=== PATIENT | female | born 1935 | race Caucasian/White ===

== ENCOUNTER → 2020-07-27 | Outpatient (CLI) | payer MEDICARE, OTHER ==
[~2020-07-27] MED LIST: ARICEPT10 MG PO; CENTRUM SILVER1 EAC6 PO; COLACE100 MG PO; DICLOFENAC SOD100 G1 TOP; FUROSEMIDE 20 M20 M1 PO; IRON325 PO; K-DUR 20 MEQ T20 MEQ PO; LOVASTATIN40 MG PO; MEMANTINE HCL10 MG PO; METOPROLOL SUCC50 MG PO; NEURONTIN 300M300 M2 PO; NORCO 10-325 T1 EACH PO; OCUVITE LUTEIN1 EAC2 PO; OMEPRAZOLE40 MG PO; ONDANSETRON HCL4 M3 PO; PERCOCET 10-321 EAC1 PO; REQUIP 1 MG TABL1 M1 PO; TRIAMTERENE/HCT1 CA1 PO; VITAMIN B-121000 MC2 SUBLING; VITAMIN C1000 MG PO; VITAMIN D325 MC3 PO; VITAMIN E1000 UNIT PO; XARELTO10 MG PO
[2020-07-27 14:46] LABS: HEMATOCRIT 38.3 % (37.0-47.0); HEMOGLOBIN 12.8 gm/dL (12.0-15.0); MCH 31.6 pg (26.0-34.0); MCHC 33.4 g/dL (28.0-37.0); MCV 94.6 fL (80.0-100.0); MPV 8.3 fl. (7.2-11.1); RBC 4.05 mil/uL (4.20-5.00); RDW-CV 13.9 % (10.5-14.5); WBC 8.5 thou/uL (4.0-11.0)
[2020-07-27 15:02] LABS: PROTIME 9.9 Seconds (9.20-11.50)
[2020-07-27 15:04] LABS: URINE BILIRUBIN NEGATIVE (Negative); URINE BLOOD 2+ (Negative); URINE CLARITY SL CLOUDY; URINE COLOR YELLOW; URINE GLUCOSE-RANDOM NEGATIVE (Negative); URINE KETONES NEGATIVE (Negative); URINE NITRITE-REFLEX NEGATIVE (Negative); URINE PROTEIN NEGATIVE (Negative); URINE SPECIFIC GRAVITY 1.015 (1.005-1.030); URINE UROBILINOGEN 0.2 E.U./dl (0.2-1.0)
[2020-07-27 15:08] LABS: URINE LEUKOCYTES-REFLEX 3+ (Negative)
[2020-07-27 15:09] LABS: ALBUMIN 3.4 g/dL (3.4-5.0); CREATININE 1.7 mg/dL (0.6-1.3); INR < 0.9; POTASSIUM 4.8 mmol/L (3.5-5.1); TOTAL BILIRUBIN 0.4 mg/dL (<0.1-1.0); TOTAL PROTEIN 7.4 g/dL (6.4-8.2)
[2020-07-27 15:11] LABS: BACTERIA-REFLEX >30 Many /HPF (None Seen); SQUAMOUS 4-10 Moderate /LPF (0-3)
[2020-07-27 15:12] LABS: CASTS None Seen /LPF (None Seen); CRYSTALS None Seen /LPF (None Seen); URINE WBC-REFLEX >25 Many /HPF (0-5)
[2020-07-27 15:13] LABS: URINE RBC 0-2 Rare /HPF (0-2)
== END ==
LOC: M.LAB 06:27
PROVIDERS: ATTEND Orthopaedic Surgery
DX: Z01.812 Encounter for preprocedural laboratory examination (principal); Z20.828 Contact with and (suspected) exposure to other viral communicable diseases; M19.011 Primary osteoarthritis, right shoulder; Z79.899 Other long term (current) drug therapy; R06.02 Shortness of breath; Z68.30 Body mass index [BMI] 30.0-30.9, adult

== ENCOUNTER 2020-08-03 06:27 | Inpatient (IN) | payer MEDICARE, OTHER ==
[~2020-08-03] VITALS: Ht 160 cm; Wt 77.6 kg
[~2020-08-03 06:27] MED LIST changes: -PERCOCET 10-321 EAC1 PO; -XARELTO10 MG PO
[2020-08-03 09:45] VITALS: BP 121/69
[2020-08-03 14:43] VITALS: BP 121/55
--- NOTE | 2020-08-03 14:54 | NUR ---
PATIENT ARRIVED ALERT AND ORIENTED X4. ORIENTED TO ROOM AND BED CONTROLS. DENIES ANY PAIN AT THIS TIME. SLING IN PLACE OVER RIGHT ARM. RIGHT FINGERS WARM AND PINK WITH GOOD CAPILLARY REFILL. STILL HAS SOME NUMBNESS RIGHT HAND FROM BLOCK. NO C/O N/V. CALL LIGHT WITHIN REACH. FALL PRECAUTIONS IN PLACE. BED ALARM AND CHAIR ALARM USED.
[2020-08-03 17:24] VITALS: BP 117/51
--- NOTE | 2020-08-03 18:38 | NUR ---
ALERT AND ORIENTED X4. RESTING QUIETLY IN BED AT THIS TIME. BLOCK WEARING OFF PATIENT AND PAIENT GIVEN PO PAIN MEDICATION. NO C/O N/V. SLING IN PLACE ON RIGHT ARM. RIGHT FINGERS WARM AND PINK. USES CALL LIGHT FOR ASSIST. FALL PRECAUTIONS IN PLACE. BED ALARM ON. POLAR CARE ON RIGHT SHOULDER. WILL CONTINUE TO MONITOR.
[2020-08-03 20:10] VITALS: BP 117/59
[2020-08-03 23:27] VITALS: BP 105/52
[2020-08-04 03:06] VITALS: BP 92/53
--- NOTE | 2020-08-04 04:57 | NUR ---
PATIENT HAS REMAINED ALERT AND ORIENTED X 4 THROUGHOUT THE SHIFT AND RESTING QUIETLY ON HOURLY ROUNDS. DRESSING RIGHT SHOULDER CLEAN AND DRY WITH POLARCARE IN PLACE WITH IMMOBILIZER. BLOCK WEARING OFF DURING THE SHIFT WITH INCREASED PAIN REQUIRING ONE DOSE IV MORPHINE IN ADDITION TO PRN OXY IR. SEE E-MAR. UP TO BSC WITH MIN ASSIST OF ONE. ADEQUATE URINE OUTPUT. ORAL INTAKE ALSO ADEQUATE WITHOUT NAUSEA. VITAL SIGNS STABLE ON ROOM AIR. FALL PRECAUTIONS IN PLACE. CONTINUE TO MONITOR.
[2020-08-04 07:45] VITALS: BP 91/66
--- NOTE | 2020-08-04 09:33 | NUR ---
cm completed the initial assessment to discuss home situation and d/c plan. pt a&ox4. pt lives home, pt stated her dtr and nicholas moved in w/her. dtr is retired and is home 12/02, essentially. pt has ramp in the back from sunroom to deck. pt has 3 steps to entryway, otherwise lives on main level of the home. pt has a son and dil that lives next store, so pt has adequate support from family. pt has a has 2 walkers, ("up right") 3 cnaes commode seat riser shower bench. pt rates her px ten plus, plus, plus" and said it is worst than child labor. pt complained she was only able to sleep 15 min last night d/t px. cm notified pt's hospitalist and rn of complaint.
[2020-08-04 12:34] VITALS: BP 123/62
[2020-08-04 16:34] VITALS: BP 98/56
--- NOTE | 2020-08-04 17:30 | NUR ---
A&O X 4, PWD. C/O RIGHT SHOULDER PAIN. PAIN NOT UNDER CONTROL. PT'S DAUGHTER REQUEST THAT WE USE HEAT ON RIGHT SHOULDER. INFORMED HER THAT SHE REALLY NEEDS TO USE POLAR PACK TO DECREASE THE INFLAMMATION. DAUGHTER STATED ICE HAS NOT REALLY HELPED HER AND WANTS TO TRY HEAT. WARM BLANKET PLACED ON RIGHT SHOULDER. PT FELT IS HELPPED BUT PT STILL MOANING WITH PAIN. ANKLES SWOLLEN 2+ RIGHT ANKLE AND 1+ LEFT ANKLE. LUNGS CLEAR, HEART TONES REG. +BS X 4 QUADS. SEE MAR FOR PAIN MEDICATION. WILL CONTINUE TO MONITOR.
[2020-08-04 20:00] VITALS: BP 129/67
[2020-08-05] VITALS (7 sets, daily range): BP systolic 101–120; BP diastolic 50–67
--- NOTE | 2020-08-05 07:32 | NUR ---
Drowsy from start of shift. She does awaken easily and vitals have been stable. She has been 92-93% on roomair. [place] mepilex dressing to rt shoulder is dry and intact with polarcare and immobilizer in place. She had oxy IR 15 mg at bedtime and rated her pain at 3. She denied need for pain meds after that. This am she was fine and I took her polarcare to be filled with ice and she tried to get alone and was trying to take off her immobilizer. I did help her to the bedside commode and fixed her immobilizer and I did give her a hydrocodone at that time and she did fall back to sleep.
[2020-08-05] MEDS ORDERED: XARELTO10 MG PO (08:16)
[2020-08-05] MEDS ORDERED: PERCOCET 10-321 EAC1 PO (08:16)
--- NOTE | 2020-08-05 15:01 | NUR ---
WOUND NURSE: PATIENT SEEN TO ADDRESS A SKIN TEAR ON THE RIGHT ELBOW. PER THE DAUGHTER THIS OCCURRED AROUND THE TIME OF SURGERY BY ON SUNDAY. DRESSING IS SATURATED AND LEAKING SEROUS FLUID 2ND TO LARGE AMOUNT OF NONPITTING EDEMA. THE ARM IS SIGNIFICANTLY PAINFUL. GENTLY REMOVED DRESSING AND IRRIGATED WITH SALINE PATTED DRY WITH GAUZE. APPLIED SKIN PRP TO INTACT PERIWOUND TISSUE. APPLIED OIL EMULSION GAUZE UNDER FOLDED 4X4'S THEN SECURED WITH TRANSPARENT DRESSING. THIS WAS TOLERATED FAIR BY THE PATIENT. PATIENT'S DAUGHTER INSTRUCTED ON CARE POST DC FROM ACUTE CARE. ALSO PATIENT REFUSED PICTURES DUE TO SIGNIFICANCE OF POST OP PAIN. PATIENT WILL BE RETURNING HOME WITH HOME HEALTH SERVICES.
--- NOTE | 2020-08-05 17:17 | NUR ---
PATIENT DECIDED SHE FELT GOOD ENOUGH AND THAT HER PAIN IS CONTROLLED ENOUGH TO GO HOME THIS EVENING. PATIENT/DAUGHTER GIVEN DISCHARGE INSTRUCTIONS AND MEDICATIONS REVIEWED. PATIENT/DAUGHTER DENY PAIN/QUESTIONS/CONCERNS PRIOR TO DISCHARGE. WOUND CARE NURSE SAW PATIENT'S SKIN TEAR THAT OCCURRED DURING SURGERY AND WROTE WOUND CARE ORDERS WHICH WERE THEN FAXED TO HOME HEALTH (PATIENT DECLINED PHOTO BEING TAKEN SHE WAS IN PAIN DURING DRESSING CHANGE). PATIENT LEFT UNIT VIA W/C WITH PERSONAL BELONGINGS ACCOMPANIED BY NURSING STAFF AT APPROX. 1706 AND MET DAUGHTER AT ER ENTRANCE TO GO HOME.
--- NOTE | 2020-08-06 11:14 | OP ---
[facility] [address] [place] [address] OPERATIVE REPORT Name: MERNA AJ Room: [address] M.R.#: [id number] Admission: 08/03/20 Attend Phys: Hector Bateman Discharge: 08/05/20 Date of : 31 Report #: [id number] THIS REPORT FOR: cc: Arina Goode MD, Pamela MD ~ Greiner, Robert F. 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 PROCEDURE: ____ reverse total shoulder arthroplasty. SURGEON: Nick Fischer II, DO TRACK LAMINATING MACHINE TENDER: PRASANNA Davies ANESTHESIA: Per operative record. ESTIMATED BLOOD LOSS: Minimal. ANTIBIOTICS: Per operative record. DRAINS: None. COMPLICATIONS: None. CONDITION OF THE PATIENT: Stable to recovery room. DESCRIPTION OF PROCEDURE: The patient was taken to the operative suite and placed supine on the operative table, given appropriate anesthesia. The patient's affected shoulder was sterilely prepped and draped in a modified beach chair position and all bony prominences well padded. Surgery began by an anterior incision over the deltopectoral region. This was carried down to the subcutaneous tissues. Careful dissection was performed around the deltoid and retracted laterally with the cephalic vein. The subscapularis was then reflected off the anterior aspect of the humerus and the biceps was stitched into the pectoralis tendon attachment and snipped up into the proximal attachment. The head was then exposed out through the anterior aspect of the shoulder. The intramedullary guides were then reamed down to appropriate size. This was then left in place with the cutting alignment guide applied, set in appropriate rotation and appropriate cut was made. [place] [address] OPERATIVE REPORT Name: MERNA AJ Room: [address] IN [facility].#: [id number] Admission: 08/03/20 Attend Phys: Hector Bateman Discharge: 08/05/20 Date of : 31 Report #: [id number] and the broach was placed. A small hubcap was then applied over the top to protect the bone and this was then retracted posteriorly. Attention was then turned to the glenoid. Excess glenoid labrum was removed. 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 Guidewire was then placed in the center and inferior aspect of the glenoid utilizing the alignment guide. This guide was then left in place and reaming was performed over this area to punctate bleeding. The glenoid baseplate and central screw was then applied and cinched into place. Four locking screws were then applied through the glenoid baseplate. The central glenoid was then trialed and showed an excellent fit and stability and the final was then selected and malleted into place. Attention was then turned back to the humerus. It was trialed up to +8 plastic, which showed an excellent fit and fill and excellent stability of the shoulder with all range of motion, with full range of motion. This final was then selected and malleted onto the back table into a monoblock configuration and this was then malleted into position within the humerus, once again reduced in near anatomic fashion, showing excellent range of motion and stability of the shoulder without evidence of dislocation. Final irrigation was then performed. The deltopectoral approach was reapproximated utilizing 1 Vicryl in running fashion. Skin was closed with 2-0 Vicryl and running Monocryl stitch. Dermabond and a sterile dressing was applied. There was a small skin tear noted to the radial aspect of the forearm due to her thin skin in this region, which was covered with an Op-Site to protect it. The patient was placed in a sling and transported to recovery room in stable condition. Counts were correct throughout the procedure. <ELECTRONICALLY SIGNED> By: Nick Fischer II, DO 08/06/20 [id number] Fischer II, DO /nt
== END 2020-08-05 17:06 | disposition home health service (06) | DRG 483 ==
LOC: M.ORTHSURG → M.TBA 08:18 → M.3W 08:18 → M.ORTHSURG 10:16 → M.3W 14:27 → M.ORTHSURG 15:10 → M.3W 08-05 17:06
PROVIDERS: ADMIT Internal Medicine; ATTEND Internal Medicine
PROC: 0RRJ00Z Replacement of Right Shoulder Joint with Reverse Ball and Socket Synthetic Substitute, Open Approach (ICD-10-PCS; principal; 2020-08-03)
DX: M19.011 Primary osteoarthritis, right shoulder (principal); M75.101 Unspecified rotator cuff tear or rupture of right shoulder, not specified as traumatic; K21.9 Gastro-esophageal reflux disease without esophagitis; I10 Essential (primary) hypertension; G25.81 Restless legs syndrome; Z96.653 Presence of artificial knee joint, bilateral; E89.0 Postprocedural hypothyroidism; G89.4 Chronic pain syndrome; Z79.899 Other long term (current) drug therapy; Z88.2 Allergy status to sulfonamides; Z98.42 Cataract extraction status, left eye; Z98.41 Cataract extraction status, right eye

== ENCOUNTER 2020-12-08 10:51 | Observation (INO) | payer MEDICARE, OTHER ==
[~2020-12-08] VITALS: Ht 157.5 cm; Wt 77.6 kg
[~2020-12-08 10:51] MED LIST changes: +CALCIUM + D SO1 EACH PO; +PERCOCET 10-321 EAC1 PO; +XARELTO10 MG PO
[2020-12-08 16:00] VITALS: BP 120/49
[2020-12-08 16:26] LABS: HEMATOCRIT 35.7 % (37.0-47.0); HEMOGLOBIN 11.8 gm/dL (12.0-15.0); MCH 31.1 pg (26.0-34.0); MCHC 33.1 g/dL (28.0-37.0); MCV 93.9 fL (80.0-100.0); MPV 8.5 fl. (7.2-11.1); RBC 3.8 mil/uL (4.20-5.00); RDW-CV 15.3 % (10.5-14.5); WBC 8.4 thou/uL (4.0-11.0)
[2020-12-08 16:34] LABS: CALCIUM 8.7 mg/dL (8.5-10.1); CREATININE 1.9 mg/dL (0.6-1.3); POTASSIUM 4.1 mmol/L (3.5-5.1)
[2020-12-08 20:00] VITALS: BP 117/42
[2020-12-09 04:22] LABS: HEMATOCRIT 27.3 % (37.0-47.0); MCH 31.1 pg (26.0-34.0); MCHC 33.7 g/dL (28.0-37.0); MCV 92.3 fL (80.0-100.0); MPV 8.2 fl. (7.2-11.1); RBC 2.95 mil/uL (4.20-5.00); RDW-CV 14.9 % (10.5-14.5); WBC 9.8 thou/uL (4.0-11.0)
[2020-12-09 04:26] LABS: HEMOGLOBIN 9.2 gm/dL (12.0-15.0)
[2020-12-09 04:33] LABS: CALCIUM 7.6 mg/dL (8.5-10.1); CREATININE 1.8 mg/dL (0.6-1.3); POTASSIUM 3.8 mmol/L (3.5-5.1)
[2020-12-09 07:50] VITALS: BP 103/40
[2020-12-09] MEDS ORDERED: OXYCODONE HCL 55 MG PO (08:58)
[2020-12-09] MEDS ORDERED: XARELTO20 MG PO (08:58)
[2020-12-09 10:56] VITALS: BP 117/42
[2020-12-09 11:40] VITALS: BP 117/42
[2020-12-09 12:00] VITALS: BP 119/61
[2020-12-09 12:29] VITALS: BP 117/42
== END 2020-12-09 12:25 | disposition home or self-care (01) ==
LOC: M.SUR 10:51 → M.TBA-ER 15:23 → M.ORTHSURG 15:51
PROVIDERS: ADMIT Family Medicine; ATTEND Family Medicine
DX: T84.84XA Pain due to internal orthopedic prosthetic devices, implants and grafts, initial encounter (principal); M19.011 Primary osteoarthritis, right shoulder; E78.5 Hyperlipidemia, unspecified; K21.9 Gastro-esophageal reflux disease without esophagitis; I10 Essential (primary) hypertension; G89.29 Other chronic pain; M81.0 Age-related osteoporosis without current pathological fracture; Z88.2 Allergy status to sulfonamides; Z79.899 Other long term (current) drug therapy; Y83.8 Other surgical procedures as the cause of abnormal reaction of the patient, or of later complication, without mention of misadventure at the time of the procedure; Y92.89 Other specified places as the place of occurrence of the external cause